=== PATIENT | male | born 1945 | race Caucasian/White ===

== ENCOUNTER → 2024-03-29 12:22 | Outpatient (REF) | payer MEDICARE, OTHER, SELFPAY | LOC: EMG 12:22 | PROVIDERS: ATTENDING PHYSICIAN Student in an Organized Health Care Education/Training Program; FAMILY PHYSICIAN Internal Medicine | DX: R20.0 Anesthesia of skin (principal) | CPT/HCPCS: 95886; 95910 ==

== ENCOUNTER 2025-06-09 15:31 | Emergency (ER) | payer MEDICARE, OTHER, SELFPAY ==
[2025-06-09 15:39] VITALS: BP 173/83
[2025-06-09 16:17] LABS: Hematocrit 39.3 % (39.0-52.0); Hemoglobin 13.2 g/dL (13.0-18.0); Mean Corp Hgb Conc. 33.6 g/dL (33.0-37.0); Mean Corpuscular Volume 92.7 fL (80.0-94.0); Nucleated Red Blood Cells % 0 % (-); Platelet Count 231 10^3/uL (130-400); Red Cell Dist. Width 12.8 % (11.5-14.5)
[2025-06-09 16:27] LABS: INR 1.00; PT 13.5 Sec (11.4-14.6)
[2025-06-09 16:33] LABS: ALT (SGPT) 26 U/L (0-50); AST (SGOT) 25 U/L (17-59); Albumin 4.4 g/dl (3.5-5.0); Alkaline Phosphatase 52 U/L (38-126); Blood Urea Nitrogen 22 mg/dl (9-20); Calcium 9.5 mg/dl (8.4-10.2); Carbon Dioxide 27 mmol/L (22-30); Chloride 105 mmol/L (98-107); Glucose 94 mg/dl (70-99); Potassium 4.6 mmol/L (3.5-5.1); Sodium 139 mmol/L (135-145); Total Protein 6.3 g/dl (6.3-8.2); eGFR > 60.00
[2025-06-09 16:43] LABS: Troponin I < 0.012 ng/ml
[2025-06-09 18:43] VITALS: BP 123/60
--- NOTE | 2025-06-09 19:52 | ED.GENMED ---
History of Present Illness
General
Chief Complaint: Breathing Problem
Source: patient
Time Seen by Provider: 06/09/25 19:39
History of Present Illness
History of Present Illness:
80-year-old male who states that he has been under tremendous amount of stress recently particularly because he is preparing his home to be sold. He states that every spring and fall he gets a 'pounding' characterized by rhinorrhea, nasal
congestion, postnasal drip, and dry cough. He usually treats this with Flonase and other allergy related medications. However, lately, he states he has been working outside sometimes in the humidity. About 2 weeks ago, he started to notice
episodes where he would feel a little short of breath, described as like feeling like he needed to take a deeper breath to get all the air in. He denies feeling breathless. These episodes would happen periodically and then to spontaneously go
away. He mostly noticed it while he would be outside working. However, today it happened while he was at his desk which prompted his visit to the ER. He denies fever, chills, chest pain or pressure, abdominal pain, headache, dizziness, leg
swelling, or other complaints. Although triage notes 'chest heavy', he denies any chest discomfort.
Past History
Past History
ED Past Medical History: HTN, Hypercholesterolemia and NIDDM
ED Past Surgical History: None
Social History
Tobacco: Former smoker
Alcohol: Occasional
Drug: None
Personal:
Living: alone
Phy Exam
Physical Exam
Physical Exam:
GENERAL: Alert , in no apparent distress
EYE: pupils equal and reactive
NECK: Supple, no significant adenopathy.
ENT: o/p clr, mmm.
CARDIAC: Regular rate and rhythm .
LUNGS: Clear breath sounds bilaterally, no acute respiratory distress, no wheezes/rales/rhonchi
ABDOMEN: Soft, without focal tenderness, no r/g, no cvat
NEUROLOGICAL: Alert and oriented, no focal neuro deficits
SKIN: Warm and dry, skin intact.
MUSCULOSKELETAL: No edema, well perfused.
PSYCH: Normal and appropriate interaction.
Scores
Heart Failure Risk
Heart Failure Risk Score: Not Applicable
Course
Orders/Labs/Results
Orders:
Orders
06/09/25 15:45
Electrocardiogram (*1) Urgent
Reason for Study: Chest Pain
EKG- Treatment ONCE
06/09/25 15:59
Comprehensive Metabolic Panel Urgent
Creatine Phosphokinase Urgent
Comment: ADD ON
Prothrombin Time Urgent
06/09/25 16:00
Complete Blood Count/With Diff Urgent
Troponin I Urgent
06/09/25 19:53
CR Chest - 2 Views Urgent
Comment:
Reason For Exam: sob
06/09/25 20:17
D-Dimer Urgent
Troponin I Urgent
06/09/25 21:34
Add On- LAB Urgent
Tests Added?: cpk
Abnormal Lab Results
06/09/25 06/09/25
15:59 16:00
RBC 4.24 L 10^6/uL
(4.70-6.10)
MCH 31.1 H pg
(27.0-31.0)
BUN 22 H mg/dl
(9-20)
06/09/25 16:00
06/09/25 15:59
Vital Signs
Initial and Last Documented VS:
Initial Vital Signs
Pulse Resp BP Pulse Ox
70 18 173/83 99
06/09/25 15:39 06/09/25 15:39 06/09/25 15:39 06/09/25 15:39
Last Documented Vital Signs
Temp Pulse Resp BP Pulse Ox
98.3 F 56 18 122/86 98
06/09/25 18:43 06/09/25 21:30 06/09/25 15:39 06/09/25 21:30 06/09/25 21:30
*Pulse Oximetry
SaO2: 100
Oxygen Mode of Delivery: Room air
Patient hypoxic: no
*Critical Care Note
Total Time (30-74mins, 75-104mins- exclusive of procedures): Not Applicable
Update Note
Update Note:
Patient presents to the Emergency Department with ___chest pain and shortness of breath
Number and Complexity of Problems Addressed at the Encounter
� Chronic conditions affecting care:
� Acute Exacerbation and/or Progression of Chronic Illness:
� Differential Diagnosis includes: But not limited to ACS, PE, pneumothorax, pericarditis, pleurisy, pneumonia, anxiety, etc. etc.
Amount and/or Complexity of Data to be Reviewed and Analyzed
� I performed an independent evaluation of and my interpretation is:
EKG: Read by me, sinus bradycardia, no acute ischemia
CT:
Xrays:
Laboratory Studies: Generally unremarkable here, troponin x 2 unremarkable, D-dimer unremarkable
Other:
� Review of other/old records reveals:
� Clinical information was obtained by an independent historian:
� Prescriptions/Medications Considered but not given:
� Further testing considered but not performed:
Risk of Complications and/or Morbidity or Mortality of Patient Management
� Social determinants of health affecting care:
� Discussion with other providers (PCP, Hospitalists, Consultants, etc):
� Escalation of care including admission/observation vs risk of discharge considered: Pulse ox 100% here, no respiratory distress. Patient reporting episodes of feeling like he needs to take a deeper breath. Clinically low
suspicion for ACS, PE, pleurisy, etc. etc. Discussed with patient portance of follow-up and reasons return the emergency department. I will print out his chest x-ray report for him for comprehensive understanding of his results. In addition,
patient now reporting that in the mornings he feels heavy cramping in his right thigh. Given that he is taking a statin, I will add a CPK.
ED Attending Note
-
Portions of this chart may have been created with voice recognition software.� Occasional wrong word or��sound alike� substitutions may have occurred due to the inherent limitations of voice recognition software.
Discharge Plan
Departure
Patient Disposition: Home (Routine Discharge)
Date of Disposition: 06/09/25
Time of Disposition: 21:33
Patient with high blood pressure during this ER visit?: Yes
Condition: Good
Discharge Problem:
Dyspnea
Instructions: Shortness of Breath (Dyspnea) (DC), BLOOD PRESSURE
Prescriptions:
No Action
oxycodone-acetaminophen 5 MG/325 MG tablet
1 tab PO Q4HPRN PRN (Reason: Pain) Qty: 15 0RF
Referrals:
Mt Wilder MD [Family Provider, Internal Medicine] - Next open appointment
Activity Restrictions/Additional Instructions:
IF YOU DEVELOP FEVER, VOMITING, CHEST PAIN OR PRESSURE, WORSENING OR PERSISTENT SHORTNESS OF BREATH, GET WORSE, DO NOT GET BETTER, OR OTHER WORRISOME SIGNS, PLEASE RETURN TO THE ER IMMEDIATELY!
Interventions
Interventions:
*Risk Screen - Suicide Last Done: 06/09/25 15:39
*General Assessment Last Done: 06/09/25 15:39
*Neglect/Abuse Screening Last Done: 06/09/25 15:39
*ED- Fall Risk Assessment Last Done: 06/09/25 21:57
*ED COVID-19 Vaccine History Last Done: 06/09/25 21:57
*Nursing Disposition Last Done: 06/09/25 21:58
ED- Cardiac Assessment Last Done: 06/09/25 21:57
ED- Pulmonary Assessment Last Done: 06/09/25 21:57
Discharge Date and Time
Discharge Date/Time: 06/09/25 21:58
Print Language: GHANAIAN
[2025-06-09 20:42] LABS: D-Dimer 0.44 ug/mlFEU (0.00-0.50)
[2025-06-09 20:53] LABS: Troponin I < 0.012 ng/ml
[2025-06-09 21:30] VITALS: BP 122/86
== END 2025-06-09 21:58 | disposition home or self-care (01) ==
LOC: EMR 15:31
PROVIDERS: Student in an Organized Health Care Education/Training Program; EMERGENCY PHYSICIAN Emergency Medicine; FAMILY PHYSICIAN Internal Medicine
DX: R06.00 Dyspnea, unspecified (principal); E11.9 Type 2 diabetes mellitus without complications; I10 Essential (primary) hypertension; E78.00 Pure hypercholesterolemia, unspecified; Z87.891 Personal history of nicotine dependence
CPT/HCPCS: 99284; 71046; 80053; 82550; 84484; 85025; 85379; 85610; 93005

== ENCOUNTER → 2025-08-29 17:40 | Outpatient (REF) | payer MEDICARE, OTHER, SELFPAY | LOC: MRI 17:40 | PROVIDERS: ATTENDING PHYSICIAN Student in an Organized Health Care Education/Training Program; FAMILY PHYSICIAN Internal Medicine | DX: M25.551 Pain in right hip (principal) | CPT/HCPCS: 73721 ==